=== PATIENT | female | born 1950 | race Caucasian/White ===

== ENCOUNTER 2016-11-20 09:00 | Emergency (ER) | payer OTHER ==
[2016-11-20 09:58] LABS: #Basophils 0.1 thou/uL (0.0-0.2); #Eosinphils 0.1 thou/uL (0.0-0.7); #Monocytes 0.6 thou/uL (0.11-0.59); #Neutrophils 6.3 thou/uL (1.40-6.50); %Basophils 0.7 % (0.0-1.0); %Eosinophils 1.2 % (0.0-10.0); %Lymphocytes 12.7 % (21.0-51.0); %Neutrophils 78.5 % (42.0-75.0); Hemoglobin 14.2 g/dL (12.0-16.0); Mean Corpuscular HGB CONC 34.3 g/dL (32.0-36.0); Mean Corpuscular Hemoglobin 31.1 pg (27.0-31.0); Mean Corpuscular Volume 90.5 fl (81.0-99.0); Platelet Count 150 thou/uL (130-400); RBC Distribution Width 12.8 % (11.5-14.5); Red Blood Cell (RBC) Count 4.58 mill/uL (4.20-5.40)
[2016-11-20 10:09] LABS: Anion Gap 15 mmol/L (10-20); BUN (Urea Nitrogen) 16 mg/dL (9.8-20.1); Calc. Creatinine Clearance 0 mL/min (70-130); Carbon Dioxide 22 mmol/L (23-31); Chloride 105 mmol/L (98-107); Estimated GFR-MDRD 80; Glucose 124 mg/dL (80-115); Potassium 3.8 mmol/L (3.5-5.1); Sodium 138 mmol/L (136-145)
[2016-11-20] MEDS ORDERED: Sulfameth/Trimethoprim DS 800-160mg TAB ONE (10:10)
[2016-11-20] MEDS ORDERED: Triple Antibiotic Oint 1 GM Packet ONE (10:12)
== END 2016-11-20 10:20 | disposition home or self-care (01) ==
LOC: MADERS 09:00
DX: L03.113 Cellulitis of right upper limb (principal); I10 Essential (primary) hypertension; Z79.899 Other long term (current) drug therapy; Z87.891 Personal history of nicotine dependence
CPT/HCPCS: 36415; 80048; 85025; 99283

== ENCOUNTER 2017-02-02 12:09 | Outpatient (CLI) | payer OTHER, MEDICARE | END 2017-02-02 12:10 | disposition home or self-care (01) | LOC: MADLABBHPM 12:09 | PROVIDERS: ATTEND Family Medicine | DX: T81.4XXA Infection following a procedure, initial encounter (principal) | CPT/HCPCS: 36415; 87070; 87077; 87186; 87205; 93798 ==

== ENCOUNTER 2017-02-06 12:13 | Outpatient (CLI) | payer OTHER, MEDICARE ==
[2017-02-06 12:36] LABS: #Basophils 0.1 thou/uL (0.0-0.2); #Eosinphils 0.2 thou/uL (0.0-0.7); #Lymphocytes 2.5 thou/uL (1.20-3.40); #Monocytes 0.7 thou/uL (0.11-0.59); #Neutrophils 5.7 thou/uL (1.40-6.50); %Basophils 1.4 % (0.0-1.0); %Eosinophils 2.3 % (0.0-10.0); %Monocytes 7.8 % (0.0-10.0); %Neutrophils 61.5 % (42.0-75.0); Hemoglobin 12.7 g/dL (12.0-16.0); Mean Corpuscular HGB CONC 32.3 g/dL (32.0-36.0); Mean Corpuscular Hemoglobin 31.3 pg (27.0-31.0); Mean Corpuscular Volume 96.7 fl (81.0-99.0); Mean Platelet Volume 8.7 fL (7.4-10.4); Platelet Count 296 thou/uL (130-400); RBC Distribution Width 14.9 % (11.5-14.5); Red Blood Cell (RBC) Count 4.08 mill/uL (4.20-5.40); White Blood Cell (WBC) Count 9.3 thou/uL (4.8-10.8)
[2017-02-06 12:47] LABS: Anion Gap 16 mmol/L (10-20); BUN (Urea Nitrogen) 20 mg/dL (9.8-20.1); Calc. Creatinine Clearance 0 mL/min (70-130); Calcium 9.5 mg/dL (7.8-10.44); Carbon Dioxide 28 mmol/L (23-31); Chloride 99 mmol/L (98-107); Estimated GFR-MDRD 57; Glucose 97 mg/dL (80-115); Potassium 4.6 mmol/L (3.5-5.1); Sodium 138 mmol/L (136-145)
== END 2017-02-06 12:14 | disposition home or self-care (01) ==
LOC: MADLABBHPM 12:13
PROVIDERS: ATTEND Family Medicine
DX: T81.4XXA Infection following a procedure, initial encounter (principal)
CPT/HCPCS: 36415; 80048; 85025

== ENCOUNTER 2017-04-28 12:23 | Outpatient (CLI) | payer OTHER, MEDICARE ==
[2017-04-28 13:15] LABS: ALT (SGPT) 30 U/L (8-55); AST (SGOT) 27 U/L (5-34); Albumin 3.9 g/dL (3.4-4.8); Alkaline Phosphatase 173 U/L (40-150); Anion Gap 15 mmol/L (10-20); BUN (Urea Nitrogen) 16 mg/dL (9.8-20.1); Bilirubin, Total 0.8 mg/dL (0.2-1.2); Calc. Creatinine Clearance 0 mL/min (70-130); Calcium 9.2 mg/dL (7.8-10.44); Carbon Dioxide 28 mmol/L (23-31); Chloride 102 mmol/L (98-107); Estimated GFR-MDRD 83; Globulin 3.4 g/dL (2.4-3.5); Glucose 102 mg/dL (80-115); Potassium 4.3 mmol/L (3.5-5.1); Protein, Total 7.3 g/dL (6.0-8.3); Sodium 141 mmol/L (136-145)
[2017-04-28 13:22] LABS: Band 2 % (5-11); Eosinophils 6 % (0-10); Hemoglobin 13.1 g/dL (12.0-16.0); Lymphocytes 17 % (21-51); MDiff Complete? YES; Mean Corpuscular HGB CONC 32.4 g/dL (32.0-36.0); Mean Corpuscular Hemoglobin 29.1 pg (27.0-31.0); Mean Corpuscular Volume 89.8 fl (81.0-99.0); Monocytes 10 % (0-10); Neutrophil 60 % (42-75); PLT Morphology Comment Appears Adequate; Platelet Count 163 thou/uL (130-400); RBC Distribution Width 13.6 % (11.5-14.5); Reactive Lymphocytes 5 % (0-10); Red Blood Cell (RBC) Count 4.51 mill/uL (4.20-5.40); White Blood Cell (WBC) Count 7.8 thou/uL (4.8-10.8)
== END 2017-04-28 12:24 | disposition home or self-care (01) ==
LOC: MADLAB 12:23
PROVIDERS: ATTEND Internal Medicine Cardiovascular Disease
DX: E78.00 Pure hypercholesterolemia, unspecified (principal)
CPT/HCPCS: 36415; 80053; 85007; 85027

== ENCOUNTER 2022-01-18 11:34 | Emergency (ER) | payer OTHER, MEDICARE | END 2022-01-18 12:15 | disposition home or self-care (01) | LOC: MADERS 11:34 | DX: U07.1 COVID-19 (principal); I10 Essential (primary) hypertension; J44.9 Chronic obstructive pulmonary disease, unspecified; L40.9 Psoriasis, unspecified; Z87.891 Personal history of nicotine dependence; Z79.82 Long term (current) use of aspirin; Z79.899 Other long term (current) drug therapy; Z95.1 Presence of aortocoronary bypass graft | CPT/HCPCS: 99283 ==

== ENCOUNTER 2022-01-20 14:36 | Emergency (ER) | payer OTHER, MEDICARE ==
[~2022-01-20 14:36] MED LIST: Iopamidol 370 76% 125 ML VIAL FS ONE; Sodium Chloride 0.9% 1,000 ML BAG ONE
[2022-01-20] MEDS ORDERED: Ondansetron PF 4 MG/2 ML Vial ONE (15:42)
[2022-01-20] MEDS ORDERED: Sodium Chloride 0.9% 1,000 ML ONE (15:42)
[2022-01-20 15:47] LABS: #Monocytes 0.5 thou/uL (0.11-0.59); #Neutrophils 5.4 thou/uL (1.40-6.50); %Basophils 0.6 % (0.0-1.0); %Eosinophils 0.1 % (0.0-10.0); %Lymphocytes 14.1 % (21.0-51.0); %Monocytes 7.3 % (0.0-10.0); %Neutrophils 77.9 % (42.0-75.0); Mean Corpuscular HGB CONC 33.6 g/dL (32.0-36.0); Mean Corpuscular Hemoglobin 29.9 pg (27.0-31.0); Mean Corpuscular Volume 89.2 fL (78.0-98.0); Mean Platelet Volume 10.2 fL (7.4-10.4); Platelet Count 135 thou/uL (130-400); RBC Distribution Width 14.3 % (11.5-14.5); Red Blood Cell (RBC) Count 4.69 mill/uL (4.20-5.40); White Blood Cell (WBC) Count 6.9 thou/uL (4.8-10.8)
[2022-01-20 16:04] LABS: ALT (SGPT) 42 U/L (8-55); AST (SGOT) 46 U/L (5-34); Alkaline Phosphatase 112 U/L (40-110); Anion Gap 22 mmol/L (10-20); BUN (Urea Nitrogen) 28 mg/dL (9.8-20.1); Bilirubin, Total 0.8 mg/dL (0.2-1.2); CK (CPK) 146 U/L (29-168); Calc. Creatinine Clearance 0 mL/min (70-130); Calcium 8.8 mg/dL (7.8-10.44); Carbon Dioxide 21 mmol/L (23-31); Chloride 103 mmol/L (98-107); Glucose 111 mg/dL (80-115); Potassium 4.3 mmol/L (3.5-5.1); Sodium 142 mmol/L (136-145)
[2022-01-20 17:30] LABS: Base Excess-Venous -2.4 mmol/L (-2.0 to 3.0); Bicarbonate (HCO3v) 26.8 mmol/L (22.0-28.0); CO2 Tension (PvCO2) 66.6 mmHg (42.0-51.0); Calcium, Ionized 1.14 mmol/L (1.15-1.33); Chloride 108 mmol/L (98-107); Hemoglobin - Calc 13.3 g/dL (12.0-16.0); Potassium 4.6 mmol/L (3.5-5.1); Sodium 140 mmol/L (138-145); T. Carbon Dioxide 28.9 mmol/L (22.0-28.0); vO2 Saturation-calc 81.9 % (60.0-85.0)
[2022-01-20 17:45] LABS: Acetaminophen Less than 10.0 mcg/mL (10.0-30.0); Alcohol Less than 10 mg/dL (Less than 10); Salicylate Less than 8.0 mg/dL (15.0-30.0)
[2022-01-20 18:54] LABS: Bilirubin Negative (Negative); Blood, Urine Negative (Negative); Clarity Clear (Clear); Glucose, Urine (Dipstick) Negative (Negative); Ketone, Urine Negative (Negative); Leukocyte Negative (Negative); Nitrite Negative (Negative); Protein, Urine (Dipstick) Negative (Neg-Trace); Urobilinogen 0.2 mg/dL (Less than 2)
[2022-01-20] MEDS ORDERED: D5 1/2 NS w/20 mEq KCL 1,000 ML ONE (19:00)
== END 2022-01-20 20:52 | disposition short-term general hospital (02) ==
LOC: MADERS 14:36
DX: U07.1 COVID-19 (principal); E87.2 Acidosis; J44.9 Chronic obstructive pulmonary disease, unspecified; I10 Essential (primary) hypertension; Z87.891 Personal history of nicotine dependence; Z79.899 Other long term (current) drug therapy
CPT/HCPCS: 71045; 71275; 80053; 80307; 81003; 82330; 82550; 82803; 83605; 84484; 85025; 93005; 96361; 96374; J2405; J3480; J7050; Q9967